=== PATIENT | female | born 1945 | race Caucasian/White ===

== ENCOUNTER 2025-02-19 15:50 | Emergency (ER) | payer OTHER, MEDICAID ==
[~2025-02-19] VITALS: Ht 154.9 cm; Wt 54.0 kg
[2025-02-19 16:22] LABS: PLATELET COUNT (AUTO) 147 K/uL (150-450); RED BLOOD CELL COUNT(AUTO) 3.98 MIL/uL (4.0-5.2); RED CELL DISTRIBUTION WIDTH 13.4 % (11.5-15.0); WHITE BLOOD COUNT (AUTO) 6.5 K/uL (4.3-11.0)
[2025-02-19 16:33] LABS: APPEARANCE,URINE CLEAR (CLEAR); BLOOD, URINE NEGATIVE Ery/uL (NEGATIVE); LEUKOCYTE ESTERASE ,URINE NEGATIVE (NEGATIVE); NITRITE, URINE NEGATIVE (NEGATIVE); UGLUCOSE 1+ mg/dL (NEGATIVE)
[2025-02-19 16:35] LABS: CALCIUM, SERUM 8.9 mg/dL (8.5-10.1); CREATININE 1.0 mg/dL (0.6-1.3); SODIUM SERUM 142 mmol/L (136-145); UREA NITROGEN, BLOOD 12 mg/dL (7-18)
[2025-02-19 16:40] LABS: INR 1.04 (0.91-1.10); LACTIC ACID 2.4 mmol/L (0.4-2.0)
[2025-02-19 16:42] LABS: ADD URINE CULTURE NO
[2025-02-19 16:43] LABS: SQUAMOUS EPITHELIAL CELL,UR Few /HPF (None Seen)
[2025-02-19 16:48] LABS: ASPARTATE AMINOTRANSFERASE 23 U/L (15-37); TOTAL PROTEIN, SERUM 6.7 g/dL (6.4-8.2)
[2025-02-19] MEDS: IV NS 0.9% 1,000 ML BAG IV ONE (16:57)
[2025-02-19] MEDS: CEFEPIME 1 GM in IV D5W 50 ML IV ONE (16:58)
[2025-02-19 17:03] LABS: ALCOHOL, BLOOD < 3 mg/dL (0-10)
[2025-02-19] MEDS ORDERED: ACETAMINOPHEN 650 MG/20.3 ML UDC ONE (17:21)
[2025-02-19] MEDS: VANCOMYCIN 1 GM in IV D5W 250 ML IV ONE (17:22)
[2025-02-19] MEDS: ACETAMINOPHEN 650 MG/20.3 ML UDC PO ONE (17:23)
[2025-02-19 21:32] VITALS: BP 148/92; TEMP 99; O2SAT 98
== END 2025-02-19 21:33 ==
LOC: ER 15:53
DX: A41.9 Sepsis, unspecified organism (principal); R00.0 Tachycardia, unspecified; J06.9 Acute upper respiratory infection, unspecified; B97.89 Other viral agents as the cause of diseases classified elsewhere; Z85.3 Personal history of malignant neoplasm of breast; Z88.0 Allergy status to penicillin; Z90.10 Acquired absence of unspecified breast and nipple; Z20.822 Contact with and (suspected) exposure to COVID-19
CPT/HCPCS: 99291; 96365; 96368; 93005 ×2; 87804 ×2; 71045; 70450; 84145; 85025; 80048; 87040 ×2; 87086; 83605 ×2; 80076; 81001; 36415; 84443; 87420; 84484 ×2; 85730; 83880; 82962; 87426; 80143; 80320; 80179; J3373; J7060; J7030 ×2; J7040; J0692; G0480